=== PATIENT | male | born 1940 | race Native Hawaiian/Other Pacific Islander ===

== ENCOUNTER 2022-03-13 13:52 | Outpatient (CLI) | payer OTHER | END 2022-03-13 20:59 | disposition home or self-care (01) | LOC: US 13:52 | PROVIDERS: ATTEND Internal Medicine | DX: R42 Dizziness and giddiness (principal); R26.89 Other abnormalities of gait and mobility; I25.10 Atherosclerotic heart disease of native coronary artery without angina pectoris; I65.29 Occlusion and stenosis of unspecified carotid artery ==